=== PATIENT | male | born 1975 | race Caucasian/White ===

== ENCOUNTER 2021-04-16 21:41 | Emergency (ER) | payer OTHER ==
[2021-04-16] MEDS ORDERED: diphenhydrAMINE 50 MG/ML VIAL ONE (23:09)
[2021-04-16] MEDS ORDERED: Metoclopramide HCl 10 MG/2 ML VIAL ONE (23:09)
[2021-04-16] MEDS ORDERED: Ibuprofen 800 MG TAB ONE (23:23)
== END 2021-04-16 23:45 | disposition home or self-care (01) ==
LOC: MADERS 21:41
DX: S83.92XA Sprain of unspecified site of left knee, initial encounter (principal); R55 Syncope and collapse; I10 Essential (primary) hypertension; X50.1XXA Overexertion from prolonged static or awkward postures, initial encounter; Z79.899 Other long term (current) drug therapy
CPT/HCPCS: 71045; 93005; 96374; 96375; J1200; J2765